=== PATIENT | male | born 1950 | race Caucasian/White ===

== ENCOUNTER 2025-06-16 18:02 | Emergency (ER) | payer MEDICARE, OTHER ==
[~2025-06-16] VITALS: Ht 182.9 cm; Wt 104.3 kg
[~2025-06-16 18:02] MED LIST: CARV3.125; FURO40 PO; LISI5 PO
[2025-06-16] MEDS ORDERED: Lidocaine 4% 1 Patch TOP ONE (18:40)
[2025-06-16] MEDS ORDERED: OxyCODONE 10/Acetamin 325 TABLET PO ONE (18:40)
[2025-06-16 19:30] VITALS: BP 147/81
[2025-06-16] MEDS ORDERED: RX Prepack 2 Tabs Ondansetron ODT 4MG UD ONE (20:45)
[2025-06-16] MEDS ORDERED: RX Prepack 6 Tabs Oxycodone 5mg UD ONE (20:45)
[2025-06-16] MEDS ORDERED: OXAYDO5 M1 PO (20:48)
[2025-06-16] MEDS ORDERED: LIDO700A20 TOP (20:48)
[2025-06-16] MEDS ORDERED: ONDA4ODT MM (20:48)
[2025-06-16] MEDS ORDERED: CYCL10 PO (20:48)
[2025-06-16] MEDS ORDERED: SENNA LAXATIVE8.6 MG PO (20:48)
[2025-06-16] MEDS ORDERED: POLY500 PO (20:48)
== END 2025-06-16 21:09 | disposition home or self-care (01) ==
LOC: ER 18:02
DX: S22.32XA Fracture of one rib, left side, initial encounter for closed fracture (principal); Z79.899 Other long term (current) drug therapy; W10.9XXA Fall (on) (from) unspecified stairs and steps, initial encounter
CPT/HCPCS: 71101; 99283-25; A9270